=== PATIENT | female | born 1985 ===

== ENCOUNTER 2023-09-30 03:06 | Emergency (ER) | payer OTHER, MEDICAID, SELFPAY ==
[2023-09-30] VITALS (8 sets, daily range): BP systolic 121–155; BP diastolic 75–99; PULSE 66–83; RESP 26; TEMP 36.6; O2SAT 95–100; BMI 31.3
--- NOTE | 2023-09-30 03:38 | ED_ITS ---
HPI - SOB/Dyspnea General Chief Complaint: Shortness of Breath/Dyspnea Stated Complaint: back pain trouble breathing Time Seen by Provider: 09/30/23 03:11 Source: patient Mode of arrival: Wheelchair Limitations: no limitations History of Present Illness HPI Narrative: 38-year-old female with no reported past medical history presents for back pain, chest pain, shortness of breath that woke her up from sleep at night. Pain is sharp, in the center of her chest, worse with deep inspiration. Patient has never had any symptoms like this previously. No medications taken prior to arrival. Patient denies OCP use, recent travels or immobilizations, leg swelling, or family history of blood clots. Related Data Allergies Allergy/AdvReac Type Severity Reaction Status Date / Time shellfish derived Allergy Unknown Verified 09/30/23 03:51 Review of Systems Review of Systems Narrative: See HPI Patient History Social History Smoking Status: Current every day smoker Smoking Status: Current every day smoker tobacco type: vaping Substance Use Type: does not use Exam Initial Vital Signs Initial Vital Signs: Vital Signs Pulse Rate 72 09/30/23 03:17 Blood Pressure 129/77 09/30/23 03:17 Pulse Oximetry 100 09/30/23 03:17 Const: Awake, alert, anxious appearing Cardiac: regular rate, regular rhythm RESP: Tachypneic, clear bilaterally, no wheezing GI: Soft, nontender, nondistended, no rebound, no guarding MSK: Atraumatic, full range of motion, pulses equal Skin: Warm, Dry, intact, no rashes Neuro: AO x3, CN II-XII grossly intact, moves all extremities Course Orders Ordered: Discontinued Medications Sodium Chloride (Normal Saline 0.9%) 1,000 mls @ 1,000 mls/hr IV BOLUS ONE Stop: 09/30/23 04:34 Last Infusion: 09/30/23 05:14 Dose: Infused Documented By: Admin: 09/30/23 04:14 Dose: 1,000 mls/hr Documented By: ADRY Ketorolac Tromethamine (Ketorolac 30 Mg/Ml Vial) 15 mg IV NOW ONE Stop: 09/30/23 03:36 Last Admin: 09/30/23 04:14 Dose: 15 mg Documented By: GC Vital Signs Vital signs: Vital Signs - 8 hr 09/30/23 03:17 09/30/23 03:17 09/30/23 03:19 Temperature 97.9 F Pulse Rate 72 79 Respiratory Rate 26 H Blood Pressure 129/77 129/99 H Pulse Oximetry 100 100 Oxygen Delivery Method Room Air 09/30/23 03:30 09/30/23 03:30 09/30/23 04:00 Temperature Pulse Rate 77 78 Respiratory Rate Blood Pressure 121/75 Pulse Oximetry 100 95 Oxygen Delivery Method Room Air 09/30/23 04:00 09/30/23 04:30 09/30/23 04:30 Temperature Pulse Rate 67 Respiratory Rate Blood Pressure 155/90 H 135/86 Pulse Oximetry 97 Oxygen Delivery Method 09/30/23 05:08 09/30/23 05:30 09/30/23 06:00 Temperature Pulse Rate 83 66 69 Respiratory Rate Blood Pressure Pulse Oximetry 100 100 100 Oxygen Delivery Method Room Air MDM - SOB/Dyspnea Differential Diagnosis Differential diagnosis: Likely congestive heart failure, community acquired pneumonia and asthma with exacerbation Lab Data 09/30/23 04:00 09/30/23 04:00 Labs: Lab Results 09/30/23 Range/Units 04:00 WBC 11.3 H (4.5-11.0) X10^3/uL RBC 3.73 L (4.0-5.2) X10^6/uL Hgb 11.4 L (12.0-16.0) g/dL Hct 33.2 L (36-46) % MCV 88.9 (80-100) fL MCH 30.4 (26-34) PG MCHC 34.2 (30-36) % RDW 12.8 (11.6-14.8) % Plt Count 369 (150-400) X10^3/uL Neut % (Auto) 73.7 (50-75) % Lymph % (Auto) 17.9 L (25-40) % Caroline % (Auto) 6.2 (3-14) % Eos % (Auto) 1.8 L (2-4) % Baso % (Auto) 0.4 (0-2) % Neut # (Auto) 8300 H (7179-0615) /uL Lymph # (Auto) 2000 (1627-0250) /uL Caroline # (Auto) 700 (0-900) /uL Eos # (Auto) 200 (0-450) /uL Baso # (Auto) 0 (0-100) /uL D-Dimer 1183 H (<500) ng/ml Sodium 136 L (137-145) mmol/L Potassium 3.1 L (3.4-5.1) mmol/L Chloride 107 (98-107) mmol/L Carbon Dioxide 19 L (22-32) mmol/L BUN 8 (7-17) mg/dL Creatinine 0.72 (0.52-1.04) mg/dL Estimated GFR > 60 (>60) mL/min BUN/Creatinine Ratio 11.1 (6-22) Glucose 113 H (70-100) mg/dL Calcium 8.3 L (8.4-10.2) mg/dL Total Bilirubin 0.4 (0.2-1.3) mg/dL AST 19 (14-36) IU/L ALT 12 (<35) IU/L Alkaline Phosphatase 67 (38-126) U/L Total Creatine Kinase 79 (30-135) U/L Troponin I < 0.012 (0.01-0.034) ng/mL NT-Pro-B Natriuret Pep 27 (<125) pg/mL Total Protein 7.4 (6.3-8.2) g/dL Albumin 3.8 (3.5-5.0) g/dL Globulin 3.6 (1.7-4.1) g/dL Albumin/Globulin Ratio 1.1 (1.0-2.8) TSH 0.413 L (0.47-4.68) uIU/mL Imaging Data Chest x-ray: Radiologist's Impression: PROCEDURE: XR CHEST 1V INDICATIONS: DYSPNEA TECHNIQUE: One view of the chest was acquired. COMPARISON: None. FINDINGS: Surgical changes and devices: None. Lungs and pleura: Lungs are clear. No pleural effusions or pneumothorax. Mediastinum: Mediastinal contours appear normal. Heart size is normal. Bones and chest wall: No suspicious bony lesions. Overlying soft tissues appear unremarkable. IMPRESSION: No acute cardiopulmonary abnormality is seen. Agree with preliminary report. Dictated by: Kentrell Narayanan M.D. on 09/30/2023 at 7:42 Approved by: Kentrell Narayanan M.D. on 09/30/2023 at 7:42 CT scan - chest: Radiologist's Impression: PROCEDURE: CT ANGIO CHEST PE PROTOCOL INDICATIONS: dyspnea, cp, elevated d-dimer TECHNIQUE: After the administration of intravenous contrast, 2 mm thick sections acquired from the pulmonary apices to the posterior costophrenic angles. 3-dimensional maximum intensity projection (MIP) coronal and sagittal reformats were then acquired through the thorax. For radiation dose reduction, the following was used: automated exposure control, adjustment of mA and/or kV according to patient size. COMPARISON: None. FINDINGS: Image quality: Diagnostic. Pulmonary arteries: Pulmonary arteries are normal in size, and demonstrate no intraluminal filling defects to suggest central pulmonary embolism. Lower Neck: No enlarged lymph nodes. Thyroid: No thyroid nodules which require sonographic follow up, per consensus guidelines. Axillae: No enlarged lymph nodes. Chest Wall: Unremarkable. Bones: Unremarkable. Lungs and Pleura: No pneumothorax or pleural effusions. No consolidation or suspicious nodules. Heart: Heart size is normal. No pericardial effusion. Thoracic Vessels: No aortic aneurysm. Mediastinum and Nalini: No enlarged lymph nodes. Esophagus: No wall thickening. No hiatal hernia. Upper Abdomen: Cholelithiasis with gallbladder distension. No wall thickening. IMPRESSION: No pulmonary embolus. No acute cardiopulmonary process. Cholelithiasis with gallbladder distension. Correlate with right upper quadrant pain to exclude acute cholecystitis. Agree with preliminary report. Dictated by: Kentrell Narayanan M.D. on 09/30/2023 at 7:43 Approved by: Kentrell Narayanan M.D. on 09/30/2023 at 7:45 MDM Narrative Medical decision making narrative: Patient with back pain, chest pain, shortness of breath. Patient is tachypneic and slightly anxious. Denies known risk factors for PE or DVT, however based on patient complaint this is in the differential. D-dimer ordered for screening purposes. EKG is normal sinus rhythm without concerning findings. Laboratory work shows WBC count 11.3, hemoglobin 11.4, platelets 369, D-dimer 1183, sodium 136, potassium 3.1, creatinine 0.7, troponin undetectable. Chest x-ray negative for acute findings. With elevated D-dimer we will order CT angio. CT angio shows no evidence of acute cardiopulmonary process, there is cholelithiasis with some gallbladder distention noted, however patient has no abdominal complaints, liver enzymes are normal. Patient reassessed, she was resting comfortably in bed, vital signs are stable and tachypnea has resolved. Patient states her symptoms have improved since being in the emergency department. Patient informed of all lab and imaging findings, I explained I do not have an obvious cause for her chest pain and shortness of breath but she was safe to be discharged home. Patient states that her mother of congestive heart failure and so when she began to experience chest pain it was very concerning to her which is why she presented for evaluation. Patient was advised to follow up with a primary care physician. Discharge Plan Departure Patient Disposition: Home Clinical Impression: Shortness of Breath, Back pain, thoracic, Chest pain Instructions: DI for Atypical Chest Pain, DI for Shortness of Breath, DI for Thoracic Back Pain Activity Restrictions/Additional Instructions: Your laboratory work and CT imaging today were normal. I do not know the exact cause of your symptoms but today it was not look like you are having a heart attack, blood clot, or pneumonia. Take Tylenol and Motrin as needed for pain or other symptoms. Please follow up with a primary care doctor if you continue to experience symptoms. Stand Alone Forms: Patient Portal/API
[2023-09-30] MEDS: KETOROLAC 30 MG/ML VIAL 15 MG IV (04:14)
[2023-09-30] MEDS: SODIUM CHLORIDE 0.9% 1,000 ML 1000 ML IV (04:14)
[2023-09-30 04:23] LABS: Add Manual Diff / Slide Review NO; Basophils Absolute Auto 0 /uL (0-100); Basophils Percent Auto 0.4 % (0-2); Eosinophils Absolute Auto 200 /uL (0-450); Eosinophils Percent Auto 1.8 % (2-4); Hematocrit 33.2 % (36-46); Hemoglobin 11.4 g/dL (12.0-16.0); Lymphocytes Absolute Auto 2000 /uL (1100-4500); Lymphocytes Percent Auto 17.9 % (25-40); Mean Corpuscular HGB Conc 34.2 % (30-36); Mean Corpuscular Hemoglobin 30.4 PG (26-34); Mean Corpuscular Volume 88.9 fL (80-100); Monocytes Absolute Auto 700 /uL (0-900); Monocytes Percent Auto 6.2 % (3-14); Neutrophils Absolute Auto 8300 /uL (1500-7000); Neutrophils Percent Auto 73.7 % (50-75); Platelet Count 369 X10^3/uL (150-400); Red Blood Cell Count 3.73 X10^6/uL (4.0-5.2); Red Cell Distribution Width 12.8 % (11.6-14.8); White Blood Cell Count 11.3 X10^3/uL (4.5-11.0)
[2023-09-30 04:35] LABS: D Dimer 1183 ng/ml (<500)
[2023-09-30 04:37] LABS: Alanine Aminotransferase 12 IU/L (<35); Albumin 3.8 g/dL (3.5-5.0); Albumin Globulin Ratio 1.1 (1.0-2.8); Alkaline Phosphatase 67 U/L (38-126); Aspartate Aminotransferase 19 IU/L (14-36); BUN Creatinine Ratio 11.1 (6-22); Bilirubin Total 0.4 mg/dL (0.2-1.3); Blood Urea Nitrogen 8 mg/dL (7-17); Calcium 8.3 mg/dL (8.4-10.2); Carbon Dioxide 19 mmol/L (22-32); Chloride 107 mmol/L (98-107); Creatine Kinase 79 U/L (30-135); Estimated Glomerular Filt Rate > 60 mL/min (>60); Globulin 3.6 g/dL (1.7-4.1); Glucose 113 mg/dL (70-100); HEMOLYSIS < 15 (0-50); Potassium 3.1 mmol/L (3.4-5.1); Sodium 136 mmol/L (137-145); Total Protein 7.4 g/dL (6.3-8.2)
--- NOTE | 2023-09-30 04:43 | DI.CT.S_ITS ---
PROCEDURE: CT ANGIO CHEST PE PROTOCOL INDICATIONS: dyspnea, cp, elevated d-dimer TECHNIQUE: After the administration of intravenous contrast, 2 mm thick sections acquired from the pulmonary apices to the posterior costophrenic angles. 3-dimensional maximum intensity projection (MIP) coronal and sagittal reformats were then acquired through the thorax. For radiation dose reduction, the following was used: automated exposure control, adjustment of mA and/or kV according to patient size. COMPARISON: None. FINDINGS: Image quality: Diagnostic. Pulmonary arteries: Pulmonary arteries are normal in size, and demonstrate no intraluminal filling defects to suggest central pulmonary embolism. Lower Neck: No enlarged lymph nodes. Thyroid: No thyroid nodules which require sonographic follow up, per consensus guidelines. Axillae: No enlarged lymph nodes. Chest Wall: Unremarkable. Bones: Unremarkable. Lungs and Pleura: No pneumothorax or pleural effusions. No consolidation or suspicious nodules. Heart: Heart size is normal. No pericardial effusion. Thoracic Vessels: No aortic aneurysm. Mediastinum and Nalini: No enlarged lymph nodes. Esophagus: No wall thickening. No hiatal hernia. Upper Abdomen: Cholelithiasis with gallbladder distension. No wall thickening. IMPRESSION: No pulmonary embolus. No acute cardiopulmonary process. Cholelithiasis with gallbladder distension. Correlate with right upper quadrant pain to exclude acute cholecystitis. Agree with preliminary report. Dictated by: Kentrell Narayanan M.D. on 09/30/2023 at 7:43 Approved by: Kentrell Narayanan M.D. on 09/30/2023 at 7:45
[2023-09-30 04:50] LABS: NT-proBNP (BNP-Adult 18+) 27 pg/mL (<125); Troponin I < 0.012 ng/mL (0.01-0.034)
[2023-09-30 05:30] LABS: Thyroid Stimulating Hormone 0.413 uIU/mL (0.47-4.68)
== END 2023-09-30 06:21 | disposition home or self-care (01) ==
PROVIDERS: Emergency Provider Emergency Medicine
DX: R06.02 Shortness of breath (principal); M54.6 Pain in thoracic spine; R07.9 Chest pain, unspecified; R79.89 Other specified abnormal findings of blood chemistry
CPT/HCPCS: 36415; 71045; 71275; 80053; 82550; 83880; 84443; 84484; 85025; 85379; 93005; 96361; 96374; 99284; J1885; Q9967